=== PATIENT | female | born 1945 | race Two or more races ===

== ENCOUNTER → 2017-07-15 | Day surgery (SDC) | payer OTHER ==
[~2017-07-15] MED LIST: ATORVASTATIN CA40 MG PO; COZAAR50 MG PO; METFORMIN HCL1000 M1 PO; PRINIVIL20 MG PO
== END | disposition home or self-care (01) ==
LOC: CIR.AMB 05:25
DX: M20.12 Hallux valgus (acquired), left foot (principal); M85.672 Other cyst of bone, left ankle and foot

== ENCOUNTER 2017-09-18 14:33 | Outpatient (CLI) | payer OTHER | END 2017-09-18 14:38 | disposition home or self-care (01) | LOC: RAD 501 14:33 | DX: M25.562 Pain in left knee (principal) ==